=== PATIENT | male | born 1955 | race Caucasian/White ===

== ENCOUNTER → 2018-05-04 | Day surgery (SDC) | payer OTHER ==
[~2018-05-04] VITALS: Ht 180.3 cm; Wt 104.3 kg
[~2018-05-04] MED LIST: CALCIUM500 M1 PO; GLIPIZIDE5 M2 PO; GLUCOPHAGE1000 M1 PO; IRON325 M3 PO; LOVASTATIN20 M1 PO; PRINIVIL5 M1 PO; TRADJENTA5 M1 PO; VITAMIN B-121000 MC3 PO
--- NOTE | 2018-05-04 11:01 | Operative Report ---
Operative/Inv Procedure Report Surgery Date: 05/04/18 Name of Procedure: left ureteroscopy, laser lithotripsy, stone extraction, stent placement, cystoscopy Pre-Operative Diagnosis: left renal stones and left ureteral stone Post-Operative Diagnosis: left renal stones Estimated Blood Loss: less than 50ml Surgeon/Back Sizer: Alanna Yi MD Anesthesia: laryngeal mask airway Drains: 6x26cm stent Specimens: stone fragments Complications: none Condition: stable Operative Indication: left renal pain and flank pain Operative/Procedure Note Note: 62-year-old male with a history of kidney stones with left renal stones in the distal UVJ stone. He was having persistent pain with nausea and wished to have it treated sooner than later. He was given the risks benefits and alternatives of ureteroscopy and laser lithotripsy with stent placement. This was done in the office as well as in the holding area. Consent was signed after all questions were answered. Patient was taken to the operating placed on the operating table in supine position. Timeout was performed. IV antibiotics were infused. LMA anesthesia was begun. He was then placed into the dorsal lithotomy position and prepped and draped in the standard sterile fashion. Cystoscopy was performed and the bladder was globally inspected. The ureteral orifices were in their normal anatomic position. The left ureter was cannulated with a solo part guidewire. This was done with fluoroscopic guidance. A semirigid ureteroscope was then placed into the ureteral orifice without difficulty and taken up to the UPJ. No stones were seen in the ureter. There were no stones in the bladder either during the cystoscopy. As result the semirigid was removed and the ureter was again visualized on the way out and no stones were appreciated. A dual-lumen catheter was then used to place the superstiff [employer] wire. The solo guidewire was clamped and a 25 cm ureteral access sheath was then placed first with the inner sheath only followed by the inner and outer sheath together. The inner and the superstiff wire were then removed. The digital flexible ureteroscope was used to go up into the renal pelvis. Each of the calyces were examined upper middle and lower. The stones were found in the mid and lower pole. The mid pole stone was removed with the 0 tip basket. The lower pole stone was removed with the 0 tip basket into the renal pelvis to be lasered. The 353 laser fiber was used to fragment the stone into smaller sizes. It was a very hard stone brown in color with multiple loculations. Once the stone was completely fragmented the 0 tip basket was then used to remove the fragments. One fragment was a bit larger and was unable to be removed from the UPJ and was fragmented further with the laser fiber. Once all the fragments were removed the calyces were examined once again and only tiny fragments were remaining that were unable to be grasped with the basket. The ureteroscope and the access sheath was removed visualizing the ureter on the way out and no stone fragments were appreciated in the ureter. Cystoscopy was then used again to place a 6 x 26 cm ureteral stent over the solo guidewire. This was done with fluoroscopic guidance. It was seen to be in good position. The wire was removed and the bladder was emptied. Patient tolerated the procedure well. His cleaned with Betadine solution was transferred to the recovery room in stable condition. Stent percent for stone analysis. Findings: Renal stones in the mid and lower pole. Proximally to 3 mm stones and a large 1 cm stone. Discharge Disposition: PACU
--- NOTE | 2018-05-04 17:02 | RADIOLOGY REPORT ---
EXAMINATION: XR ABDOMEN /C-arm fluoroscopy assistance CLINICAL INDICATION: Left ureteroscopy and lithotripsy and stent insertion. COMPARISON: None TECHNIQUE: C-arm fluoroscopic assistance is provided at the time of the procedure. 9 spot radiographs were obtained at the time of the procedure. Fluoroscopy time: 47 seconds. FINDINGS: The full procedural detail will be dictated by Dr. Yi, the performing surgeon. IMPRESSION: C-arm fluoroscopy assistance is provided at the time of the procedure. Full procedural detail and findings will be dictated by Dr. Yi.
== END ==
LOC: STS 03:36
DX: N20.2 Calculus of kidney with calculus of ureter (principal); Z87.442 Personal history of urinary calculi; Z98.84 Bariatric surgery status; E11.9 Type 2 diabetes mellitus without complications; Z79.84 Long term (current) use of oral hypoglycemic drugs; I10 Essential (primary) hypertension
CPT/HCPCS: 74018; C2617; J0131; J0690; J2250